=== PATIENT | female | born 1975 | race African-American/Black ===

== ENCOUNTER 2016-10-31 14:25 | Emergency (ER) | payer OTHER ==
[~2016-10-31 14:25] MED LIST: ASPIRIN EC81 M1 PO; FLONASE 0.05% N16 GM; IRON325 ( 652 PO; LISINOPRIL PO; MACROBID PO; MULTI VITAMIN1 EACH PO; MYRBETRIQ25 MG PO; OXYCODONE-APAP1 EACH PO; PROTONIX PO
[2016-10-31 14:38] LABS: URINE SOURCE CLEAN CATCH
[2016-10-31 14:41] LABS: MICRO INDICATED? NO; URINE APPEARANCE CLEAR; URINE BILIRUBIN NEG (NEG); URINE BLOOD NEG (NEG); URINE COLOR YELLOW; URINE GLUCOSE NEG (NORM); URINE KETONE NEG (NEG); URINE LEUKOCYTE ESTERASE NEG (NEG); URINE NITRATE NEG (NEG); URINE PROTEIN NEG (NEG); URINE SPECIFIC GRAVITY <=1.005 (1.003-1.035); URINE UROBILINOGEN 0.2 MG/DL (NORM)
== END 2016-10-31 15:48 | disposition home or self-care (01) ==
LOC: SED 14:25
PROVIDERS: Emergency Medicine
DX: G89.29 Other chronic pain (principal); M54.5 Low back pain; R30.0 Dysuria; F17.200 Nicotine dependence, unspecified, uncomplicated; Z79.899 Other long term (current) drug therapy; Z88.0 Allergy status to penicillin; Z88.1 Allergy status to other antibiotic agents; Z79.82 Long term (current) use of aspirin
CPT/HCPCS: 81003; 84703; 99283

== ENCOUNTER 2017-03-25 10:53 | Emergency (ER) | payer OTHER ==
--- NOTE | ~2017-03-25 | CT4 ---
[facility] A Service of [facility] RADIOLOGY TEXT RESULTS PATIENT: MIGUEL BECERRA LOCATION: SED : 71 UNIT #: [id number] AGE: [address]: Inga Tran MD SEX: F ORDER DR: [id number] [address] [address] [id number] MR#: [id number] Acc #: [id number] NAME: MIGUEL BECERRA : 1975 SEX: F STUDY DATE/TIME: 03/25/2017 11:56 UNIT: SED ROOM: STUDY DESCRIPTION: CT Abd and Pelv Wo Cont Attending Physician: Inga Tran M.D. Ordering Physician: Inga Tran M.D. Primary Care Physician: Sissy Reno M.D. MEDICAL IMAGING REPORT This report is preliminary unless electronic signature is present. EXAM CT scan of the abdomen and pelvis without contrast, 03/25/2017 HISTORY Frequent urinary tract infections. Low back pain and burning with urination for the past 5 days. Bladder incontinence. Hypertension. TECHNIQUE Spiral CT was performed through the abdomen and pelvis without oral or intravenous contrast administration as per clinician request. This CT exam was performed with one or more of the following radiation dose reduction techniques: automatic exposure control, adjustment of mA and/or kV according to patient size, and iterative reconstruction. FINDINGS ABDOMEN: The exam is limited by the lack of oral and intravenous contrast. The liver, spleen, pancreas, gallbladder and biliary tree, adrenal glands and kidneys are normal. PELVIS: The gut, mesenteric and josé antonio structures are normal. There is no free fluid in the abdomen or pelvis. Lung bases are normal. IMPRESSION The exam limited by the lack of oral and intravenous contrast. Otherwise negative. Dictated by... Terrance Dumont M.D. THIS IS AN ELECTRONICALLY VERIFIED REPORT Terrance Dumont M.D. at 03/26/2017 10:[address] [facility] A Service of [facility] RADIOLOGY TEXT RESULTS PATIENT: MIGUEL BECERRA LOCATION: SED : 71 UNIT #: [id number] AGE: [address]: Inga Tran MD SEX: F ORDER DR: CAROL/justo TD: 03/25/2017 12:37 JOB #: [id number] MEDICAL IMAGING REPORT Page 1 of 1
[2017-03-25 11:38] LABS: URINE SOURCE CLEAN CATCH
[2017-03-25 11:40] LABS: MICRO INDICATED? NO; URINE APPEARANCE CLEAR; URINE BILIRUBIN NEG (NEG); URINE BLOOD NEG (NEG); URINE COLOR YELLOW; URINE GLUCOSE NEG (NORM); URINE KETONE NEG (NEG); URINE LEUKOCYTE ESTERASE NEG (NEG); URINE NITRATE NEG (NEG); URINE PROTEIN NEG (NEG); URINE SPECIFIC GRAVITY 1.015 (1.003-1.035); URINE UROBILINOGEN 0.2 MG/DL (NORM)
== END 2017-03-25 13:14 | disposition home or self-care (01) ==
LOC: SED 10:53
PROVIDERS: Student in an Organized Health Care Education/Training Program
DX: R10.9 Unspecified abdominal pain (principal); I10 Essential (primary) hypertension; Z88.0 Allergy status to penicillin; Z88.1 Allergy status to other antibiotic agents
CPT/HCPCS: 74176; 81003; 99284